=== PATIENT | male | born 1980 | race Caucasian/White ===

== ENCOUNTER 2019-09-24 05:38 | Day surgery (SDC) | payer BC ==
[2019-09-20 10:54] LABS: BASOPHILS # (AUTO) 0.1 X10'3 (0-0.2); BASOPHILS % (AUTO) 0.6 % (0-1); EOSINOPHILS # (AUTO) 0.1 X10'3 (0-0.9); EOSINOPHILS % (AUTO) 0.7 % (0-6); LYMPHOCYTES # (AUTO) 2.4 X10'3 (1.1-4.8); LYMPHOCYTES % (AUTO) 28.4 % (21-51); MEAN CORPUSCULAR HEMOGLOBIN 31.2 PG (27.0-31.0); MEAN CORPUSCULAR HGB CONC 34.3 g/dL (33.0-36.5); MEAN CORPUSCULAR VOLUME 90.9 FL (78-98); MEAN PLATELET VOLUME 10.1 FL (7.4-10.4); MONOCYTES # (AUTO) 0.7 X10'3 (0-0.9); MONOCYTES % (AUTO) 8.5 % (2-12); NEUTROPHILS # (AUTO) 5.3 X10'3 (1.8-7.7); NEUTROPHILS % (AUTO) 61.8 % (42-75); PRE OP HEMATOCRIT 43.7 % (42.0-52.0); PRE OP PLATELET COUNT 202 X10'3 (140-440); RED BLOOD COUNT 4.81 X10'6 (4.70-6.10); RED CELL DISTRIBUTION WIDTH 13.5 % (11.5-14.5)
[2019-09-20 11:35] LABS: ALBUMIN/GLOBULIN RATIO 1.1 (1.1-1.5); ALKALINE PHOSPHATASE 89 IU/L (46-116); BLOOD UREA NITROGEN 12 MG/DL (7-18); BUN/CREATININE RATIO 12.8 (5.4-32.0); CHLORIDE 106 MMOL/L (99-107); CREATININE 0.94 MG/DL (0.60-1.10); PRE OP ALT 36 U/L (30-65); PRE OP ANION GAP 5 (8-16); PRE OP AST 18 U/L (10-37); PRE OP BILIRUB, TOTAL 0.8 MG/DL (0.0-1.0); PRE OP GLUCOSE 111 MG/DL (70-104); PRE OP POTASSIUM 4.9 MMOL/L (3.4-5.1); PRE OP SODIUM 141 MMOL/L (135-145); TOTAL CARBON DIOXIDE 29.6 MMOL/L (24-32); TOTAL PROTEIN 7.6 G/DL (6.4-8.2); eGFR 90 ML/MIN
[~2019-09-24] VITALS: Ht 198.1 cm; Wt 136.1 kg
[2019-09-24] VITALS (12 sets, daily range): BP systolic 104–143; BP diastolic 68–90
[~2019-09-24 05:38] MED LIST: NO HOME MEDS; ceFAZolin 1,000 MG/D5W 50ML IVPB Premixed bag IV ONE; cefazolin/dext.iso 2gm/100ml 100 ML IV ONE; famotidine 10mg tablet PO ONE; ringers solution, lacted 1,000 ML IV SCH
[2019-09-24] MEDS ORDERED: LIDOcaine 1% (10mg/ml) 2ml vial ONE (06:11)
[2019-09-24] MEDS ORDERED: LIDOcaine 1% 30ml preserv. free vial ONE (06:47)
[2019-09-24] MEDS ORDERED: BUPIVACAINE liposomal/PF 13.3 MG/ML vial IM ONE (06:48)
[2019-09-24] MEDS ORDERED: BUPIVAcaine/PF 2.5mg/ml (0.25%) 10ml vial ONE (06:48)
[2019-09-24] MEDS ORDERED: BUPIVAcaine/PF 2.5 mg/ml (0.25%) 30ml vial ONE (06:48)
[2019-09-24] MEDS ORDERED: midazolam 2 mg/2 ml injection ONE (07:16)
[2019-09-24] MEDS ORDERED: fentaNYL /PF 50mcg/ml 5ml ampule ONE (07:16)
[2019-09-24] MEDS ORDERED: ringers solution, lacted 1,000 ML IV SCH (07:37)
[2019-09-24] MEDS ORDERED: morphine 4 MG/ML inj SYRINge IV PRN ×2 (07:40)
[2019-09-24] MEDS ORDERED: meperidine/PF 25mg/ml syringe IV PRN ×2 (07:40)
[2019-09-24] MEDS ORDERED: ondansetron/PF 4mg/2ml inj IV PRN (07:40)
[2019-09-24] MEDS ORDERED: proCHLORperazine 10 MG/2 ml inj IV PRN (07:40)
[2019-09-24] MEDS ORDERED: fentaNYL/PF 50MCG/1 ML 2ML syringe ONE (07:49)
[2019-09-24] MEDS ORDERED: LIDOcaine 2% (20mg/ml) 5ml vial ONE (08:25)
[2019-09-24] MEDS ORDERED: propofol inj 20 ML IV ONE (08:25)
[2019-09-24] MEDS ORDERED: dexamethasone sod phosphate 4mg/ml inj. ONE (08:25)
[2019-09-24] MEDS ORDERED: ondansetron/PF 4mg/2ml inj ONE (08:25)
[2019-09-24] MEDS ORDERED: succinylcholine 20mg/ml inj IV ONE (08:25)
[2019-09-24] MEDS ORDERED: rocuronium 10mg/ml inj IV ONE (08:25)
--- NOTE | 2019-09-24 08:59 | NUR ---
Received from OR via [facility] , accompanied by Anesthesiologist DR EARL and report given by Anesthesiolgist. PT DROWSY AND AWAKENS EASILY. ABD SOFT, DRESSINGS CLEAN DRY AND INTACT. PAIN LEVEL STATED AN 8. PIV LUISA PATENT RUNNING LR AT 100 ML/HR.
[2019-09-24] MEDS ORDERED: oxyCODONE/APAP 10/325mg tablet PO PRN (09:00)
[2019-09-24] MEDS ORDERED: oxyCODONE/APAP 5-325mg tablet PO PRN (09:00)
[2019-09-24] MEDS: meperidine/PF 25mg/ml syringe IV PRN ×4 (09:16→10:15)
--- NOTE | 2019-09-24 10:39 | NUR ---
PT AWAKE AND ALERT WITH PAIN LEVEL AT 5. AMBULATED TO RESTROOM AND VOIDED 300 ML CLEAR YELLOW URINE. ABD SOFT AND DRESSINGS CLEAN DRY AND INTACT. PIV RIGHT UE D/CD WITH CATHETER TIP INTACT. DISCHARGE INSTRUCTIONS GIVEN PT AND SPOUSE VERBALIZED UNDERSTANDING. TRANSPORTED TO PERSONAL VEHICLE VIA WHEELCHAIR TO .
== END 2019-09-24 10:39 | disposition home or self-care (01) ==
LOC: PAS 05:38
PROVIDERS: ATTEND Surgery
DX: K42.9 Umbilical hernia without obstruction or gangrene (principal); G47.33 Obstructive sleep apnea (adult) (pediatric); E66.9 Obesity, unspecified; Z68.34 Body mass index [BMI] 34.0-34.9, adult; Z72.89 Other problems related to lifestyle; Z87.891 Personal history of nicotine dependence; Z79.899 Other long term (current) drug therapy
CPT/HCPCS: 36415; 49652; 64488; 80053; 82948; 85025; C1781; C9290; J0330; J0690; J1100; J2001; J2175; J2250; J2405; J2704; J3010; J3490; S2900; A4215; A4618; J7120